=== PATIENT | male | born 1960 | race Caucasian/White ===

== ENCOUNTER → 2022-01-19 | Outpatient (CLI) | payer OTHER | LOC: KOH-I 10:18 | DX: J44.9 Chronic obstructive pulmonary disease, unspecified (principal); R50.9 Fever, unspecified; R05.9 Cough, unspecified; R91.8 Other nonspecific abnormal finding of lung field | CPT/HCPCS: 71046 ==

== ENCOUNTER → 2022-02-22 | Outpatient (CLI) | payer OTHER | LOC: HEART 5 10:09 | DX: J44.0 Chronic obstructive pulmonary disease with (acute) lower respiratory infection (principal); J18.9 Pneumonia, unspecified organism; R94.2 Abnormal results of pulmonary function studies | CPT/HCPCS: 71046; 94060; 94729 ==

== ENCOUNTER → 2022-04-12 | Outpatient (CLI) | payer OTHER | LOC: KOH-I 13:51 | DX: Z87.891 Personal history of nicotine dependence (principal); R91.8 Other nonspecific abnormal finding of lung field | CPT/HCPCS: 71271 ==